=== PATIENT | female | born 1945 | race Caucasian/White ===

== ENCOUNTER 2017-12-14 06:01 | Emergency (ER) | payer OTHER ==
[~2017-12-14] VITALS: Ht 149.9 cm; Wt 73.0 kg
[~2017-12-14 06:01] MED LIST: ACETAMINOPHEN-1 EAC1 PO; ASPIR 8181 MG PO; ASPIRIN325; ATENOLOL 100MG100 M2; CEFDINIR300 MG PO; CIPROFLOXACIN500 M1 PO; DAILY VITAMIN1 EAC5 PO; FLEXERIL; LISINOPRIL10 MG; LOTREL 5-40 MG1 EACH; PHENERGAN 25 MG25 M1 PO; PROAIR HFA8.5 GM INH; TENORMIN25 MG; TENORMIN50 MG PO; VICODIN 5-5001 EACH PO; ZESTORETIC 20-1 EACH PO; ZPAK PO
[2017-12-14 06:04] VITALS: BP 161/99
[2017-12-14] MEDS ORDERED: PRINIVIL10 MG PO (06:21)
[2017-12-14] MEDS ORDERED: PREDNISONE50 MG PO (06:21)
[2017-12-14] MEDS ORDERED: DIPHENHIST50 MG PO (06:21)
[2017-12-14] MEDS ORDERED: NIACIN 100MG T100 M1 PO (06:27)
== END 2017-12-14 06:28 | disposition home or self-care (01) ==
LOC: M.ERS 06:01
DX: T78.40XA Allergy, unspecified, initial encounter (principal); Z88.5 Allergy status to narcotic agent; Z88.0 Allergy status to penicillin; Z88.2 Allergy status to sulfonamides; Z88.8 Allergy status to other drugs, medicaments and biological substances; Z90.49 Acquired absence of other specified parts of digestive tract; Z86.73 Personal history of transient ischemic attack (TIA), and cerebral infarction without residual deficits; Y92.89 Other specified places as the place of occurrence of the external cause